=== PATIENT | male | born 1955 | race Caucasian/White ===

== ENCOUNTER 2022-09-25 16:31 | Inpatient (IN) | payer OTHER ==
[2022-09-25 17:29] VITALS: RESP 16; BMI 23.9
[2022-09-25] MEDS ORDERED: chlordiazePOXIDE HCL 25 MG CAPSULE PO PRN (19:04)
[2022-09-25] MEDS ORDERED: NALOXONE HCL 0.4 MG/ML VIAL IM PRN (19:06)
[2022-09-25] MEDS ORDERED: BISMUTH SUBSALICYLATE 524 MG/30 ML PO PRN (19:06)
[2022-09-25] MEDS ORDERED: IBUPROFEN 400 MG TABLET (FP) PO PRN (19:06)
[2022-09-25] MEDS ORDERED: METHOCARBAMOL 500 MG TABLET PO PRN (19:06)
[2022-09-25] MEDS ORDERED: MAG HYDROX/AL HYDROX/SIMETH 30 ML UNIT-DOSE CUP PO PRN (19:06)
[2022-09-25] MEDS ORDERED: MAGNESIUM HYDROX 2400MG/30ML ORAL SUSPENSION 30 ML CUP PO PRN (19:06)
[2022-09-25] MEDS ORDERED: DICYCLOMINE HCL 10 MG CAPSULE PO PRN (19:06)
[2022-09-25] MEDS ORDERED: ONDANSETRON *ODT* 4 MG TABLET SL PRN ×2 (19:06→19:32)
[2022-09-25] MEDS ORDERED: ACETAMINOPHEN 325 MG TABLET (FP) PO PRN (19:06)
[2022-09-25] MEDS ORDERED: BENZONATATE 200 MG CAPSULE PO PRN (19:06)
[2022-09-25] MEDS ORDERED: IBUPROFEN 600 MG TABLET (FP) PO PRN (19:06)
[2022-09-25] MEDS ORDERED: NALOXONE HCL (KLOXXADO) 8 MG SPRAY NS PRN (19:06)
[2022-09-25] MEDS ORDERED: LOPERAMIDE HCL 2 MG CAPSULE PO PRN (19:06)
[2022-09-25] MEDS ORDERED: NICOTINE 10 MG CARTRIDGE (INHALER) IH PRN (19:06)
[2022-09-25] MEDS ORDERED: hydrOXYzine PAMOATE 25 MG CAPSULE (FP) PO PRN (19:06)
[2022-09-25] MEDS ORDERED: POLYETHYLENE GLYCOL (HEALTHYLAX) 3350 17 GM PACKET PO PRN (19:06)
[2022-09-25] MEDS ORDERED: BENZOCAINE/MENTHOL (CHLORASEPTIC ) LOZENGE MM PRN (19:06)
[2022-09-25] MEDS ORDERED: guaiFENesin 600 MG TABLET.ER (FP) PO PRN (19:06)
[2022-09-25] MEDS ORDERED: chlordiazePOXIDE HCL 25 MG CAPSULE ONE (19:20)
[2022-09-25] MEDS ORDERED: chlordiazePOXIDE HCL 25 MG CAPSULE PO ONE (19:30)
[2022-09-25] MEDS ORDERED: traZODone HCL 50 MG TABLET (FP) PO ONE (19:57)
[2022-09-25] MEDS ORDERED: PANTOPRAZOLE 40 MG TABLET PO ONE (20:30)
[2022-09-25] MEDS ORDERED: MELATONIN 5 MG TABLETS PO SCH (22:00)
[2022-09-25] MEDS ORDERED: THIAMINE HCL 100 MG TABLET (FP) PO SCH (22:00)
[2022-09-25] MEDS: chlordiazePOXIDE HCL 25 MG CAPSULE PO SCH (22:10)
[2022-09-26] MEDS: chlordiazePOXIDE HCL 25 MG CAPSULE PO SCH (05:01)
[2022-09-26 06:21] VITALS: TEMP 97.3
[2022-09-26 09:11] VITALS: BP 141/95; PULSE 78
[2022-09-26] MEDS ORDERED: PRENATAL VITAMINS W/ FOLIC ACID TABLET (FP) PO SCH (10:00)
[2022-09-26 11:15] LABS: POTASSIUM 3.8 mmol/L (3.5-5.1)
[2022-09-26 11:19] LABS: CALCIUM 8.9 mg/dL (8.5-10.1)
[2022-09-26 11:20] LABS: ALBUMIN 3.7 g/dl (3.4-5.0); BLOOD UREA NITROGEN 17.1 mg/dL (7-18)
[2022-09-26 11:23] LABS: CREATININE 1.1 mg/dL (0.55-1.3)
[2022-09-26 11:24] LABS: TOT PROT 6.3 g/dl (6.4-8.2)
[2022-09-27] MEDS ORDERED: chlordiazePOXIDE HCL 25 MG CAPSULE PO SCH (05:00)
[2022-09-28] MEDS ORDERED: chlordiazePOXIDE HCL 10 MG CAPSULE PO PRN
[2022-09-28] MEDS ORDERED: chlordiazePOXIDE HCL 10 MG CAPSULE PO SCH (05:00)
[2022-09-29] MEDS ORDERED: chlordiazePOXIDE HCL 10 MG CAPSULE PO SCH (05:00)
[2022-09-30] MEDS ORDERED: chlordiazePOXIDE HCL 10 MG CAPSULE PO ONE (05:00)
== END 2022-09-26 09:51 | disposition left against medical advice (07) | DRG 894 ==
LOC: YASAS 16:31 → Y6N 19:19
PROVIDERS: ADMIT Allergy & Immunology; ATTEND Surgery
PROC: HZ2ZZZZ Detoxification Services for Substance Abuse Treatment (ICD-10-PCS; principal; 2022-09-25)
DX: F10.230 Alcohol dependence with withdrawal, uncomplicated (principal); F13.230 Sedative, hypnotic or anxiolytic dependence with withdrawal, uncomplicated; F17.210 Nicotine dependence, cigarettes, uncomplicated; F41.8 Other specified anxiety disorders; G47.00 Insomnia, unspecified; H91.91 Unspecified hearing loss, right ear; Z86.018 Personal history of other benign neoplasm
CPT/HCPCS: 36415; 80053; 86780; 87635